=== PATIENT | female | born 1970 | race Caucasian/White ===

== ENCOUNTER 2020-07-16 22:51 | Emergency (ER) | payer OTHER ==
[~2020-07-16] VITALS: Ht 165.1 cm; Wt 89.9 kg
[2020-07-16 23:47] VITALS: BP 148/76
== END 2020-07-17 00:02 | disposition home or self-care (01) ==
LOC: ED 22:51
DX: M25.561 Pain in right knee (principal); W54.1XXA Struck by dog, initial encounter; Y92.009 Unspecified place in unspecified non-institutional (private) residence as the place of occurrence of the external cause

== ENCOUNTER → 2021-01-21 | Day surgery (SDC) | payer OTHER | END | disposition home or self-care (01) | LOC: MSO 07:10 | DX: Z12.11 Encounter for screening for malignant neoplasm of colon (principal); D12.5 Benign neoplasm of sigmoid colon; K21.9 Gastro-esophageal reflux disease without esophagitis; Z79.899 Other long term (current) drug therapy | CPT/HCPCS: 00811; J2704; J7120 ==

== ENCOUNTER → 2021-03-07 | Outpatient (CLI) | payer OTHER | LOC: RAD 10:43 | DX: S69.92XA Unspecified injury of left wrist, hand and finger(s), initial encounter (principal); W19.XXXA Unspecified fall, initial encounter ==

== ENCOUNTER 2021-10-06 01:58 | Emergency (ER) | payer OTHER ==
[~2021-10-06] VITALS: Ht 165.1 cm; Wt 88.1 kg
[2021-10-06] MEDS ORDERED: NEXIUM20 MG PO (03:14)
[2021-10-06 04:20] VITALS: BP 170/108
== END 2021-10-06 04:21 | disposition home or self-care (01) ==
LOC: ED 01:58
DX: K21.9 Gastro-esophageal reflux disease without esophagitis (principal); Z28.311 Partially vaccinated for COVID-19

== ENCOUNTER → 2024-09-12 | Outpatient (CLI) | payer OTHER ==
[~2024-09-12] MED LIST: NEXIUM20 MG PO
== END ==
LOC: RAD 11:43
DX: Z01.818 Encounter for other preprocedural examination (principal)